=== PATIENT | male | born 1960 | race African-American/Black ===

== ENCOUNTER 2020-12-14 16:33 | Inpatient (IN) ==
[2020-12-14] MEDS ORDERED: SODIUM CHLORIDE 0.9% 500 ML IV STA (17:13)
[2020-12-14 18:14] LABS: Basophils % 0.2 % (0.0-0.8); Eosinophils % 0.2 % (0.00-10.9); Hematocrit 40.7 VOL% (42.0-52.0); Hemoglobin 12.9 GM/DL (14.0-18.0); Immature Granulocytes % 0.6 %; Immature Granulocytes Absolute 0.03 #; Lymphocytes # 1.3 10*3/uL (1.4-4.0); Lymphocytes % 26.5 % (21.2-54.2); Mean Corpuscular HGB Conc 31.7 GM/DL (32-36); Mean Corpuscular Volume 91.5 FL (87-102); Mean Platelet Volume 9.6 FL (9.6-12.0); Monocytes % 10.6 % (1.7-12.7); Neutrophils % 61.9 % (38.7-73.9); Platelet Count 142 T/CUMM (130-400); Red Blood Count 4.45 MC/CUMM (3.8-5.5); Red Cell Distribution Width 13.2 % (9.3-17.3)
[2020-12-14 18:33] LABS: Lactic Acid 2.8 MMOL/L (0.4-2.0)
[2020-12-14 18:34] LABS: Bilirubin,Urine Negative (Negative); Blood, Urine Small mg/dL (Negative); Glucose,Urine (UA) Negative (Negative); Hyaline Casts,Urine 1 /LPF (0-3); Ketones,Urine 20 mg/dL (Negative); Mucus,Urine Occasional /LPF (Occasional); Nitrite,Urine Negative (Negative); Protein,Urine Negative; RBC,Urine 10 /HPF (0-4); Squamous Epithelial Cell,Urine Occasional /HPF (0-10); Urine Appearance CLEAR (Clear); Urine Color Amber (Yellow); Urine Specific Gravity 1.029 (1.001-1.035)
[2020-12-14 18:37] LABS: Barbiturates Screen,Urine Negative (Negative); Benzodiazepines Screen,Urine Negative (Negative); Cannabinoid Screen,Urine Negative (Negative); Opiate Screen,Urine Negative (Negative); Phencyclidine Screen,Urine Negative (Negative)
[2020-12-14 18:42] LABS: Alanine Aminotransferase 89 U/L (16-61); Albumin 3.8 G/DL (3.4-5.0); Alkaline Phosphatase 65 U/L (45-117); Aspartate Amino Transferase 68 U/L (0-37); Blood Urea Nitrogen 25 MG/DL (7-18); Calcium 9.1 MG/DL (8.5-10.1); Carbon Dioxide 30 MMOL/L (21-32); Estimated Glom Filtration Rate 117 ML/MIN; Glucose 110 MG/DL (74-106); Osmolality,Calculated 290.8 MOS/KG (273-304); Potassium 3.4 MMOL/L (3.5-5.1); Sodium 144 MMOL/L (136-145); Total Protein 8.6 G/DL (6.4-8.2)
[2020-12-14] MEDS ORDERED: SODIUM CHLORIDE 0.9% 1,000 ML IV STA (18:44)
[2020-12-14] MEDS ORDERED: LABETALOL 20 MG/4 ML SYRINGE IV PRN (22:14)
[2020-12-14] MEDS: ENOXAPARIN 40 MG/0.4 ML SYRINGE SUBCUT SCH (23:08)
[2020-12-15] MEDS: SODIUM CHLORIDE 0.9% 1,000 ML IV SCH ×2 (00:47→15:01)
[2020-12-15 02:00] LABS: Basophils % 0.2 % (0.0-0.8); Eosinophils % 0.2 % (0.00-10.9); Hematocrit 36.6 VOL% (42.0-52.0); Hemoglobin 11.9 GM/DL (14.0-18.0); Immature Granulocytes % 0.2 %; Immature Granulocytes Absolute 0.01 #; Lymphocytes # 1.2 10*3/uL (1.4-4.0); Lymphocytes % 28.2 % (21.2-54.2); Mean Corpuscular HGB Conc 32.5 GM/DL (32-36); Mean Corpuscular Volume 91.5 FL (87-102); Mean Platelet Volume 9.3 FL (9.6-12.0); Monocytes % 17.3 % (1.7-12.7); Neutrophils % 53.9 % (38.7-73.9); Platelet Count 110 T/CUMM (130-400); Red Cell Distribution Width 13.2 % (9.3-17.3); White Blood Count 4.1 T/CUMM (4-12)
[2020-12-15 02:26] LABS: Lymphocytes 13 % (20-55); Platelet Estimate Normal; Segmented Neutrophils 75 % (50-85); Total Cells Counted 100
[2020-12-15 02:46] LABS: Bilirubin,Total 0.8 MG/DL (0.2-1.0); Calcium 8.2 MG/DL (8.5-10.1); Osmolality,Calculated 290.7 MOS/KG (273-304); Potassium 3.2 MMOL/L (3.5-5.1); Total Protein 6.9 G/DL (6.4-8.2)
[2020-12-15 02:54] LABS: Risk Ratio 4.3
[2020-12-15] MEDS: CIPROFLOXACIN 0.3% OPH SOLN 2.5 ML BOTTLE LEFT EYE SCH ×5 (05:52→23:15)
[2020-12-15] MEDS ORDERED: HALOPERIDOL DECANOATE 100 MG/ML IM SCH (07:30)
[2020-12-15 08:03] LABS: Albumin 3.3 G/DL (3.4-5.0); Bilirubin,Direct 0.2 MG/DL (0.0-0.20); Bilirubin,Indirect 0.7 MG/DL (0.0-1.0); Bilirubin,Total 0.9 MG/DL (0.2-1.0); Total Protein 7.4 G/DL (6.4-8.2)
[2020-12-15] MEDS: ASPIRIN CHEW 81 MG TABLET PO SCH (08:50)
[2020-12-15] MEDS ORDERED: POTASSIUM CHLORIDE 20 MEQ TABLET PO PRN (09:32)
[2020-12-15 09:39] LABS: Bilirubin,Urine Negative (Negative); Blood, Urine Small mg/dL (Negative); Glucose,Urine (UA) Negative (Negative); Ketones,Urine 20 mg/dL (Negative); Mucus,Urine Occasional /LPF (Occasional); Nitrite,Urine Negative (Negative); Protein,Urine Negative; RBC,Urine 45 /HPF (0-4); Urine Appearance CLEAR (Clear); Urine Color Yellow (Yellow); Urine Specific Gravity 1.025 (1.001-1.035)
[2020-12-15] MEDS: SODIUM CHLOR 0.9% KCL 20 MEQ 20 MEQ/1,000 ML BAG IV SCH (15:25)
[2020-12-15 21:29] VITALS: BP 148/94
[2020-12-15] MEDS: ENOXAPARIN 40 MG/0.4 ML SYRINGE SUBCUT SCH (23:15)
[2020-12-16] MEDS: SODIUM CHLOR 0.9% KCL 20 MEQ 20 MEQ/1,000 ML BAG IV SCH ×2 (01:54→12:27)
[2020-12-16] MEDS: CIPROFLOXACIN 0.3% OPH SOLN 2.5 ML BOTTLE LEFT EYE SCH ×2 (07:21→09:36)
[2020-12-16] MEDS: ASPIRIN CHEW 81 MG TABLET PO SCH (08:58)
== END 2020-12-16 14:24 | disposition left against medical advice (07) | DRG 72 ==
LOC: N.ED 16:33 → N.EDINP 16:33 → SUATTDRO 22:14 → N.CC 23:00 → SUATTDRO 12-15 07:30 → N.3W 12-15 14:43
PROVIDERS: ADMIT Internal Medicine; ATTEND Internal Medicine